=== PATIENT | female | born 2000 | race Caucasian/White ===

== ENCOUNTER 2021-11-04 00:58 | Emergency (ER) | payer BC ==
[2021-11-04] MEDS ORDERED: diphenhydrAMINE 25 MG CAP ONE (01:44)
[2021-11-04] MEDS ORDERED: predniSONE 20 MG TAB ONE (01:45)
[2021-11-04] MEDS ORDERED: Famotidine 20 MG TAB ONE (01:46)
== END 2021-11-04 02:23 | disposition home or self-care (01) ==
LOC: CSHERS 00:58
DX: L50.0 Allergic urticaria (principal)
CPT/HCPCS: 99283; J7512

== ENCOUNTER 2021-12-12 02:06 | Emergency (ER) | payer OTHER, BC | END 2021-12-12 04:08 | disposition home or self-care (01) | LOC: CSHERS 02:06 | DX: S20.219A Contusion of unspecified front wall of thorax, initial encounter (principal); V49.59XA Passenger injured in collision with other motor vehicles in traffic accident, initial encounter; Y92.410 Unspecified street and highway as the place of occurrence of the external cause | CPT/HCPCS: 71045 ==